=== PATIENT | female | born 1950 | race Caucasian/White ===

== ENCOUNTER → 2018-09-20 12:43 | Outpatient (CLI) | payer MEDICARE, BC ==
[2013-08-18 18:53] VITALS: BMI 30.4
[~2018-09-20 12:43] MED LIST: EFFEXOR XR150 MG PO; LEVOTHROID50 MCG PO; NORCO 10/325 TA1 TA1 PO; RESTORIL15 MG PO
== END | disposition home or self-care (01) ==
LOC: D.CT 12:43
PROVIDERS: ATTEND Family Medicine
DX: G44.53 Primary thunderclap headache (principal); M54.81 Occipital neuralgia

== ENCOUNTER → 2019-02-14 14:22 | Outpatient (CLI) | payer MEDICARE, BC ==
[2013-08-18 18:53] VITALS: BMI 30.4
== END | disposition home or self-care (01) ==
LOC: D.HCCECHO 14:22
PROVIDERS: ATTEND Internal Medicine Cardiovascular Disease
DX: I34.0 Nonrheumatic mitral (valve) insufficiency (principal)

== ENCOUNTER → 2020-02-13 10:09 | Outpatient (CLI) | payer MEDICARE, BC ==
[2013-08-18 18:53] VITALS: BMI 30.4
== END | disposition home or self-care (01) ==
LOC: D.HCCECHO 10:09
PROVIDERS: ATTEND Internal Medicine Cardiovascular Disease
DX: I34.0 Nonrheumatic mitral (valve) insufficiency (principal)